=== PATIENT | male | born 1970 | race African-American/Black ===

== ENCOUNTER 2024-05-16 18:29 | Emergency (ER) | payer SELFPAY ==
[~2024-05-16] VITALS: Ht 190.5 cm; Wt 176.0 kg
[2024-05-16 18:48] VITALS: O2SAT 99
[2024-05-16 22:13] VITALS: BP 202/119; PULSE 92; RESP 18; TEMP 36.8; O2SAT 99
[2024-05-16] MEDS: AMLODIPINE 5MG TABLET PO ONE (22:13)
[2024-05-16] MEDS: KETOROLAC 30MG/ML VIAL IM ONE (22:13)
[2024-05-16 23:18] LABS: BASOPHILS % 0.5 % (0.0-2.0); EOSINOPHILS % 1.7 % (0.0-5.0); HEMATOCRIT. 41.6 % (42.0-52.0); HEMOGLOBIN. 13.3 g/dL (14.0-18.0); LYMPHOCYTES % 23.3 % (20.0-50.0); MEAN CORPUSCULAR HEMOGLOBIN 26.3 pg (28.0-32.0); MEAN CORPUSCULAR VOLUME 82.3 fL (80.0-94.0); MEAN PLATELET VOLUME 8.4 fl (7.4-10.4); MONOCYTES % 7.4 % (2.0-8.0); NEUTROPHILS % 67.1 % (40.0-76.0); PLATELET 227 x1000/uL (130-400); RED BLOOD CELL COUNT 5.05 mill/uL (4.7-6.1); RED CELL DISTRIBUTION WIDTH 16.3 % (11.6-14.6); WHITE BLOOD COUNT 9.7 x1000/uL (4.5-11.0)
[2024-05-16 23:28] LABS: CHLORIDE 102 mEq/L (98-107); POTASSIUM 3.9 mEq/L (3.5-5.1); SODIUM 139 mEq/L (136-145)
[2024-05-16 23:29] LABS: CALCIUM 9.7 mg/dL (8.7-10.4); CARBON DIOXIDE 29 mEq/L (21-32)
[2024-05-16 23:34] LABS: CREATININE 0.8 mg/dL (0.6-1.3); GLUCOSE 91 mg/dL (70-105); UREA NITROGEN BLOOD 14 mg/dL (9-23)
[2024-05-16] MEDS ORDERED: AMLO5TAB5 MT (23:51)
== END 2024-05-17 00:20 | disposition home or self-care (01) ==
LOC: ER 18:29
DX: R51.9 Headache, unspecified (principal); I10 Essential (primary) hypertension; Z79.899 Other long term (current) drug therapy
CPT/HCPCS: 99285; 70450; 80048; 85025; 36415; 96372; J1885